=== PATIENT | male | born 1985 | race Caucasian/White ===

== ENCOUNTER 2017-07-08 09:18 | Emergency (ER) | payer OTHER ==
[2017-07-08 09:25] VITALS: BP 123/82; PULSE 61; RESP 12; TEMP 97.5; O2SAT 97
--- NOTE | 2017-07-08 09:32 | EDPHY ---
H & P Time Seen by Provider: 07/08/17 09:23 HPI/ROS: This patient was cleaning his right ear with a Q-tip this morning when some of the cotton from the end of the Q-tip came off in his external canal in his unable to remove at home. He presents with complaint of foreign body to the right ear. He came here by private vehicle for evaluation. He denies any significant pain from the episode. ROS: HEENT: No bleeding from the ear. No change in hearing. No symptoms from the right ear prior to cleaning it this morning. 5 point ROS is otherwise negative Smoking Status: Never smoked Physical Exam: Physical Exam Vital signs are normal. General: No acute distress HEENT: Right external canal exam reveals a small amount of cotton in the anterior aspect of the external canal. No evidence of abrasion. The TM is clear. No evidence of TM rupture. Left external canal and TM are clear. Skin: No rash or pallor. Neuro: Alert Constitutional: Initial Vital Signs Temperature (C) 36.4 C 07/08/17 09:21 Heart Rate 61 07/08/17 09:21 Respiratory Rate 12 07/08/17 09:21 Blood Pressure 123/82 H 07/08/17 09:21 O2 Sat (%) 97 07/08/17 09:21 O2 Delivery Mode Room Air Allergies/Adverse Reactions: No Known Allergies Allergy (Unverified 07/08/17 09:24) Home Medications: Medication Instructions Recorded Concerta 07/08/17 MDM/Departure - MDM ED Course/Re-evaluation: Ear irrigation by our tech with removal of small amount of content from external canal. Patient tolerated this well. - Depart Disposition: Home, Routine, Self-Care Clinical Impression: Foreign body in right ear Qualifiers: Encounter type: initial encounter Qualified Code(s): T16.1XXA - Foreign body in right ear, initial encounter Condition: Good Additional Instructions: Diagnosis: Foreign body-right ear Plan: Tylenol for ear discomfort or ibuprofen if needed. Referrals: Сергей Khan MD [Primary Care Provider] - As per Instructions
== END 2017-07-08 09:48 | disposition home or self-care (01) ==
LOC: CED 09:18
DX: T16.1XXA Foreign body in right ear, initial encounter (principal); X58.XXXA Exposure to other specified factors, initial encounter